=== PATIENT | female | born 1995 ===

== ENCOUNTER 2021-11-30 23:21 | Observation (INO) | payer MEDICAID, OTHER ==
[~2021-11-30] VITALS: Ht 160 cm; Wt 66.7 kg
[2021-11-30 23:23] VITALS: BP 125/91
[2021-12-01 00:10] LABS: APPEARANCE,URINE CLEAR (CLEAR); BILIRUBIN,URINE NEGATIVE (NEGATIVE); COLOR,URINE YELLOW (YELLOW); GLUCOSE, URINE (UA) NEGATIVE (NEGATIVE); KETONES,URINE NEGATIVE (NEGATIVE); LEUKOCYTE ESTERASE ,URINE NEGATIVE (NEGATIVE); NITRATE,URINE NEGATIVE (NEGATIVE); OCCULT BLOOD,URINE NEGATIVE (NEGATIVE); PROTEIN,URINE NEGATIVE (NEGATIVE); UROBILINOGEN,URINE 0.2 mg/dL (0.2-1.0)
[2021-12-01 00:49] LABS: AMPHET/METH SCREEN,URINE NEGATIVE (NEGATIVE); BARBITURATE SCREEN, URINE NEGATIVE (NEGATIVE); BENZODIAZEPINES SCREEN,URINE NEGATIVE (NEGATIVE); CANNABINOID SCREEN,URINE NEGATIVE (NEGATIVE); COCAINE SCREEN,URINE NEGATIVE (NEGATIVE); PHENCYCLIDINE SCREEN,URINE NEGATIVE (NEGATIVE)
== END 2021-12-01 01:20 | disposition home or self-care (01) ==
LOC: EDH 23:21 → LDH 23:40
PROVIDERS: ADMIT Internal Medicine; ATTEND Internal Medicine
DX: O62.9 Abnormality of forces of labor, unspecified (principal); Z3A.34 34 weeks gestation of pregnancy; Z79.899 Other long term (current) drug therapy
CPT/HCPCS: 59025; 80305; 81003; G0378; G0379

== ENCOUNTER 2021-12-19 10:22 | Inpatient (IN) | payer MEDICAID ==
[~2021-12-19] VITALS: Ht 160 cm; Wt 65.8 kg
[2021-12-19 11:51] LABS: APPEARANCE,URINE CLOUDY (CLEAR); BILIRUBIN,URINE NEGATIVE (NEGATIVE); COLOR,URINE YELLOW (YELLOW); GLUCOSE, URINE (UA) NEGATIVE (NEGATIVE); KETONES,URINE NEGATIVE (NEGATIVE); LEUKOCYTE ESTERASE ,URINE SMALL (NEGATIVE); NITRATE,URINE NEGATIVE (NEGATIVE); OCCULT BLOOD,URINE LARGE (NEGATIVE); PH,URINE 6.5 (5.0-8.0); PROTEIN,URINE 30 mg/dL (NEGATIVE); UROBILINOGEN,URINE 0.2 mg/dL (0.2-1.0)
[2021-12-19 11:57] LABS: BACTERIA,URINE Many /HPF (None Seen); MUCUS,URINE Few LPF (None Seen); SQUAMOUS EPITHELIAL CELL,UR Many /HPF (0-2)
[2021-12-19] MEDS ORDERED: LACTATED RINGERS 1000ML 1,000 ML IV PRN ×2 (12:00→13:30)
[2021-12-19 12:04] LABS: BASOPHILS % (AUTO) 0.5 % (0.0-5.0); EOSINOPHILS % (AUTO) 0.5 % (0.0-8.0); HEMATOCRIT 33.4 % (36-48); LYMPHOCYTES % (AUTO) 18.9 % (21.0-51.0); MEAN CORPUSCULAR HEMOGLOBIN 25.7 pg (27.0-33.0); MEAN CORPUSCULAR HGB CONC 31.7 g/dL (32.0-36.0); MEAN CORPUSCULAR VOLUME 81.1 fL (79-99); MONOCYTES % (AUTO) 10.5 % (3.0-13.0); NEUTROPHILS % (AUTO) 69.1 % (40.0-77.0); PLATELET COUNT (AUTO) 213 K/uL (130-400); RED BLOOD CELL COUNT(AUTO) 4.12 MIL/uL (4.00-5.50); RED CELL DISTRIBUTION WIDTH 13.8 % (11.0-15.5)
[2021-12-19 12:06] LABS: CREATININE 0.5 mg/dL (0.5-1.5); POTASSIUM 3.7 mmol/L (3.5-5.1)
[2021-12-19 12:09] LABS: INR 0.93 (0.85-1.15); PROTHROMBIN TIME 9.3 SEC (9.6-11.6)
[2021-12-19 12:10] LABS: ALBUMIN 2.3 g/dL (3.5-5.0); PARTIAL THROMBOPLASTIN TIME 29.9 SEC (26.3-35.5); TOTAL PROTEIN, SERUM 7.8 g/dL (6.0-8.3); URIC ACID 5.3 mg/dL (2.6-7.2)
[2021-12-19 12:34] LABS: AMPHET/METH SCREEN,URINE NEGATIVE (NEGATIVE); BARBITURATE SCREEN, URINE NEGATIVE (NEGATIVE); BENZODIAZEPINES SCREEN,URINE NEGATIVE (NEGATIVE); CANNABINOID SCREEN,URINE NEGATIVE (NEGATIVE); COCAINE SCREEN,URINE NEGATIVE (NEGATIVE); PHENCYCLIDINE SCREEN,URINE NEGATIVE (NEGATIVE)
[2021-12-19] MEDS ORDERED: AMPICILLIN 2GM+NS 100ML 100 ML IV ONE (13:22)
[2021-12-19] MEDS ORDERED: EPHEDRINE SULFATE 50 MG/ML AMPULE IVP PRN (13:30)
[2021-12-19] MEDS ORDERED: AMPICILLIN 2GM+NS 100ML 100 ML IV SCH (13:30)
[2021-12-19] MEDS ORDERED: LACTATED RINGERS 500 ML 500 ML IV PRN (13:30)
[2021-12-19] MEDS ORDERED: ROPIVACAINE 0.2% 100ML VIAL 100 ML EP SCH (13:30)
[2021-12-19] MEDS ORDERED: NALOXONE HCL 0.4 MG/1 ML ML IV PRN (13:30)
[2021-12-19] MEDS: OXYTOCIN-LR 20 UNITS/1000 ML 1,000 ML IV SCH ×2 (14:37→17:09)
[2021-12-19] MEDS ORDERED: OXYTOCIN-LR 20 UNITS/1000 ML 1,000 ML IV SCH (15:00)
[2021-12-19] MEDS ORDERED: MEASLES/MUMPS/RUBELLA VACCINE, LIVE 0.5 ML/VIAL SQ PRN (16:30)
[2021-12-19] MEDS ORDERED: ACETAMINOPHEN WITH CODEINE 1 TAB TAB PO PRN (16:30)
[2021-12-19] MEDS ORDERED: DIPH,PERTUSS(ACELL),TET VAC/PF 0.5 ML VIAL IM PRN (16:30)
[2021-12-19] MEDS ORDERED: ACETAMINOPHEN 325 MG TAB PO PRN (16:30)
[2021-12-19] MEDS ORDERED: LANOLIN 30GM OINTMENT TP PRN (16:30)
[2021-12-19] MEDS ORDERED: BENZOCAINE/LANOLIN/ALOE VERA 60 ML AEROSOL TP PRN (16:30)
[2021-12-19] MEDS ORDERED: WITCH HAZEL 1 PAD TP PRN (16:30)
[2021-12-19] MEDS ORDERED: ACETAMINOPHEN WITH CODEINE 1 TAB TAB ONE (17:01)
[2021-12-19 18:30] VITALS: BP 135/79
[2021-12-19 19:12] VITALS: BP 129/86
[2021-12-19] MEDS: DOCUSATE SODIUM 100 MG CAP PO SCH (20:10)
[2021-12-19] MEDS: IBUPROFEN 600 MG TABLET PO PRN (20:14)
[2021-12-19] MEDS: AMPICILLIN 1GM+NS 50ML 50 ML IV SCH (21:30)
[2021-12-19 22:41] VITALS: BP 127/76
[2021-12-20] MEDS: AMPICILLIN 1GM+NS 50ML 50 ML IV SCH ×2 (01:30→01:54)
[2021-12-20 03:21] VITALS: BP 113/84
[2021-12-20 07:24] VITALS: BP 120/93
[2021-12-20 08:11] LABS: RAPID PLASMA REAGIN REACTIVE (NONREACTIVE); RAPID PLASMA REAGIN TITER REACTIVE >1:16 (NONREACTIVE)
[2021-12-20] MEDS: DOCUSATE SODIUM 100 MG CAP PO SCH (08:27)
[2021-12-20] MEDS: IBUPROFEN 600 MG TABLET PO PRN (08:28)
[2021-12-22 03:09] LABS: RUBELLA IGM ANTIBODY <20.0 AU/mL (0.0-19.9)
== END 2021-12-20 10:50 | disposition home or self-care (01) | DRG 560 ==
LOC: EDH 10:22 → OBSVTOIN 10:23 → LDH 10:23 → WSH 18:30
PROVIDERS: ADMIT Obstetrics & Gynecology; ATTEND Obstetrics & Gynecology
PROC: 10E0XZZ Delivery of Products of Conception, External Approach (ICD-10-PCS; principal; 2021-12-19)
PROC: 10907ZC Drainage of Amniotic Fluid, Therapeutic from Products of Conception, Via Natural or Artificial Opening (ICD-10-PCS; 2021-12-19)
PROC: 3E0R3BZ Introduction of Anesthetic Agent into Spinal Canal, Percutaneous Approach (ICD-10-PCS; 2021-12-19)
PROC: 00HU33Z Insertion of Infusion Device into Spinal Canal, Percutaneous Approach (ICD-10-PCS; 2021-12-19)
DX: O76 Abnormality in fetal heart rate and rhythm complicating labor and delivery (principal); Z37.0 Single live birth; O60.14X0 Preterm labor third trimester with preterm delivery third trimester, not applicable or unspecified; O40.3XX0 Polyhydramnios, third trimester, not applicable or unspecified; O69.81X0 Labor and delivery complicated by cord around neck, without compression, not applicable or unspecified; Z3A.36 36 weeks gestation of pregnancy; O77.0 Labor and delivery complicated by meconium in amniotic fluid
CPT/HCPCS: 36415; 76805; 80053; 80305; 81001; 84550; 85025; 85384; 85610; 85730; 86592; 86644; 86645; 86694; 86695; 86701; 86747; 86762; 86777; 86778; 86780; 86850; 86900; 86901; 87088; 87340; 87390; A4314; G0378; J0290; J2590; J7120